=== PATIENT | female | born 1985 | race Caucasian/White ===

== ENCOUNTER 2017-05-03 12:32 | Emergency (ER) | payer MEDICAID ==
[2017-05-03 12:37] VITALS: O2SAT 97
--- NOTE | 2017-05-03 13:19 | EDPHY ---
H & P Stated Complaint: R ankle injury yesterday--walking--rolled ankle Time Seen by Provider: 05/03/17 12:54 HPI/ROS: HPI: This is a 31-year-old female who presents with Chief Complaint: Right ankle injury 05/01/2017 Location: Right lateral ankle Quality: Injury Duration: 2 days ago Signs and Symptoms: No bleeding, no radiation, no numbness, no weakness, no tingling, no incontinence, + decreased range of motion, + swelling, + pain, no fever, + bruising Timing: Acute, worse with weight-bearing Severity: Moderate Context: Patient reports that she was wearing her dance go clogged on the way home from work on the approximately 2 days ago when she accidentally tripped on uneven pavement in [facility] heard her right ankle. She fell into the street due to being caught off balance but denies LOC/head injury/neck pain/ dizziness/nausea/vomiting/amnesia. Patient reports that she was able to walk several blocks home that evening but was experiencing some pain. She has been taking naproxen applied ice for the 1st evening. She is wearing her roommates walking boot that is size 9 in mens. She reports that she has a history of breaking her ankle and midfoot approximately 2016 but she is a sure of the exact diagnosis. She also reports some bruising on the posterior aspect of her ankle into her calf. Modifying Factors: See above Comment: ROS: see HPI Constitutional: No fever, no chills, no weight loss Eyes: No blurred vision Respiratory: No shortness of breath, no cough Cardiovascular: No chest pain Gastrointestinal: No nausea, no vomiting no diarrhea Genitourinary: No dysuria Extremities: No myalgias Neurologic: No weakness, no numbness Skin: No rashes Hematologic: No bruising, no bleeding MEDICAL/SURGICAL/SOCIAL HISTORY: Medical history: Generally healthy. Does not take any regular medications. Surgical history: Denies Social history: Employed. CONSTITUTIONAL: Pleasant adult female, appears younger than stated age, awake and alert, no obvious distress HEENT: Atraumatic and normocephalic. NECK: supple, no midline tenderness, flexion 45 degrees, extension 45 degrees, right and left lateral flexion 45 degrees. No meningismus. Cardiovascular: Normal S1/S2, regular rate, regular rhythm, without murmur rub or gallop. PULMONARY/CHEST: Symmetrical and nontender. no crepitus. Clear to auscultation bilaterally. Good air movement. No accessory muscle usage. ABDOMEN: Soft, nondistended, nontender, no ecchymosis. PELVIC: no pain with rocking; bilateral hips flexion 125 degrees, extension 30 degrees, with no pain internal rotation and no pain external rotation. BACK: No midline tenderness, no paraspinous spasm, deep tendon reflexes 2/2, no pain with straight leg raise, No foot drop. Achilles reflexes are equal bilaterally. Able to walk on heels and toes without difficulty. EXTREMITIES: 2/2 pulses, strength 5/5, right Ankle: Moderate lateral ankle swelling over malleolus with yellowish purple bruising. Plantar flexion to 50, dorsiflexion to 20. Foot inversion to 35 degree. No tenderness/swelling Anterior talofibular ligament. No tenderness/swelling Calcaneofibular ligament , moderate tenderness/swelling posterior talofibular ligament, moderate tenderness/swelling posterior inferior tibiofibular ligament. Achilles tendon intact. DIP/PIP/MCP flexion/extension intact with good light touch sensation. no deformities, no clubbing, no cyanosis or edema. NEUROLOGICAL: no focal neuro deficits. GCS 15. Light touch sensation intact. SKIN: Warm and dry, no erythema. no rash. Good capillary refill. Source: Patient Exam Limitations: No limitations - Personal History LMP (Females 10-55): 15-21 Days Ago - Medical/Surgical History Hx Asthma: No Hx Chronic Respiratory Disease: No Hx Diabetes: No Hx Cardiac Disease: No Hx Renal Disease: No Hx Cirrhosis: No Hx Alcoholism: No Hx HIV/AIDS: No Hx Splenectomy or Spleen Trauma: No Other PMH: fractured R foot 2017 - Social History Smoking Status: Never smoked Constitutional: Initial Vital Signs Temperature (C) 36.5 C 05/03/17 12:35 Heart Rate 79 05/03/17 12:35 Respiratory Rate 18 05/03/17 12:35 Blood Pressure 106/75 05/03/17 12:35 O2 Sat (%) 97 05/03/17 12:35 O2 Delivery Mode Room Air Allergies/Adverse Reactions: Penicillins Allergy (Verified 05/23/09 17:45) Home Medications: Medication Instructions Recorded oxyCODONE/APAP 5/325 [Percocet 1 - 2 tab PO Q6H PRN #15 tab 05/03/17 5/325 (*)] Medical Decision Making - Diagnostics Imaging Results: Imaging Impressions Ankle X-Ray 05/03/17 12:38 Impression: 1. Acute lateral malleolus fracture as above. 2. Borderline medial clear space, consider stress views. Procedures: Procedure: Splint placement. A right short-leg posterior and sugar-tong splint was applied by the Emergency Room fire range technician. After application of the splint I returned and re-examined the patient. The splint was adequately immobilizing the joint and distal to the splint the patient's circulation and sensation was intact. ED Course/Re-evaluation: Right ankle x-ray and oral medications ordered, ice pack applied No signs of neurovascular compromise/tenting of skin/compartment syndrome/ extremities and joints examined above and below area of concern and are neurovascularly intact. 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 I evaluated care for this patient independently. Discussed this patient with Dr. Burr who did not see the patient. Differential Diagnosis: Differential diagnosis includes but is not limited to fibular fracture, tibia fracture, midfoot fracture, leFranc fracture, ankle sprain, Achilles injury, nerve injury. - Data Points Medications Given: Discontinued Medications Hydrocodone Bitart/Acetaminophen ([place] 5/325) 1 tab PO EDNOW ONE Stop: 05/03/17 13:29 Last Admin: 05/03/17 13:40 Dose: 1 tab Departure - Departure Disposition: Home, Routine, Self-Care Clinical Impression: Closed fracture of right distal fibula Qualifiers: Encounter type: initial encounter Fracture morphology: torus Qualified Code(s) : S82.821A - Torus fracture of lower end of right fibula, initial encounter for closed fracture Condition: Good Instructions: Ankle Fracture (ED), External Fixation of an Ankle Fracture (DC) Additional Instructions: Keep the splint dry and in place until seen for follow-up by Orthopedics. Use crutches to aid ambulation. Follow toe-touch weight-bearing status. Take Tylenol 650 mg every 4 hours and/or Ibuprofen 600 mg every 8 hours with food as needed for pain. Use Percocet every 6 hours as needed for severe/break through pain. Do not use Tylenol and Percocet concomitantly. Apply ice for 30 minutes at a time; 2-3 times per day for the next 1-2 days. Follow up with Orthopedics in 5-7 days at which time they will evaluate and recommend with you if conservative management versus surgery is indicated. Return to the ER immediately if you experience new or worsening pain, discoloration, numbness, tingling, or any other symptoms that concern you. Referrals: Coleman Diez MD [Medical Doctor] - As per Instructions Stand Alone Forms: Work Excuse Prescriptions: oxyCODONE/APAP 5/325 [Percocet 5/325 (*)] 1 - 2 tab PO Q6H PRN #15 tab PRN Reason: Pain, Severe
[2017-05-03] MEDS ORDERED: HYDROCODONE/APAP 5/325 TAB PO ONE (13:28)
[2017-05-03 14:45] VITALS: BP 122/91; PULSE 73; RESP 13; TEMP 98.8
== END 2017-05-03 14:39 | disposition home or self-care (01) ==
DX: S82.821A Torus fracture of lower end of right fibula, initial encounter for closed fracture (principal); W01.0XXA Fall on same level from slipping, tripping and stumbling without subsequent striking against object, initial encounter; Y92.410 Unspecified street and highway as the place of occurrence of the external cause; Y99.8 Other external cause status; Y93.41 Activity, dancing